=== PATIENT | male | born 1985 | race Two or more races ===

== ENCOUNTER 2019-09-11 20:01 | Emergency (ER) | payer MEDICAID ==
[~2019-09-11] VITALS: Ht 175.3 cm; Wt 90.7 kg
[2019-09-11] MEDS ORDERED: DOCUSATE SODIUM 100 MG/10 ML LIQUID UDC ONE (20:27)
[2019-09-11] MEDS ORDERED: DOCUSATE SODIUM 100 MG/10 ML LIQUID UDC NG ONE (20:30)
[2019-09-11] MEDS ORDERED: HYDROCODONE/APAP 10-325 MG TABLET PO ONE (22:00)
[2019-09-11] MEDS ORDERED: HYDROCODONE/APAP 10-325 MG TABLET ONE (22:01)
[2019-09-11 22:12] VITALS: BP 145/89
--- NOTE | 2019-09-11 22:12 | NUR ---
Patient discharged to home in stable conditon. Written and verbal after care instructions given. Patient verbalizes understanding of instructions. Patient ambulated with stable gait.
== END 2019-09-11 22:20 | disposition home or self-care (01) ==
LOC: ER 20:05
DX: H61.21 Impacted cerumen, right ear (principal); F17.200 Nicotine dependence, unspecified, uncomplicated; F15.10 Other stimulant abuse, uncomplicated
CPT/HCPCS: A4217; A4663

== ENCOUNTER 2019-12-28 00:19 | Emergency (ER) | payer MEDICAID ==
[~2019-12-28] VITALS: Ht 172.7 cm; Wt 74.8 kg
[2019-12-28] MEDS ORDERED: LIDOCAINE 1%-EPI 1:100,000 20 ML VIAL ONE (00:26)
[2019-12-28] MEDS ORDERED: SULFAMETH/TRIMETH 800/160 MG TABLET PO ONE (00:30)
[2019-12-28] MEDS ORDERED: SULFAMETH/TRIMETH 800/160 MG TABLET ONE (00:36)
--- NOTE | 2019-12-28 00:43 | NUR ---
Patient discharged to home in stable condition. Written and verbal after care instructions given. Patient verbalizes understanding of instructions. Stressed follow up or return to ER for worsening s/s.
[2019-12-28] MEDS ORDERED: LIDOCAINE 1%-EPI 1:100,000 20 ML VIAL TP ONE (00:45)
[2019-12-28 00:46] VITALS: BP 135/81
== END 2019-12-28 00:48 | disposition home or self-care (01) ==
LOC: ER 00:21
DX: L02.414 Cutaneous abscess of left upper limb (principal); S51.832S Puncture wound without foreign body of left forearm, sequela; X78.8XXS Intentional self-harm by other sharp object, sequela; F15.90 Other stimulant use, unspecified, uncomplicated
CPT/HCPCS: 10060; 99283; J3490; A4663

== ENCOUNTER 2025-02-13 03:01 | Emergency (ER) | payer MEDICAID ==
[~2025-02-13] VITALS: Ht 170.2 cm; Wt 113.4 kg
[2025-02-13] MEDS ORDERED: AMOXICILLIN-CLAVUL 875-125MG TABLET ONE (03:28)
[2025-02-13] MEDS: AMOXICILLIN-CLAVUL 875-125MG TABLET PO ONE (03:29)
[2025-02-13] MEDS ORDERED: PSEU120T99 PO (03:31)
[2025-02-13] MEDS ORDERED: AMOX-430 PO (03:31)
[2025-02-13] MEDS ORDERED: PSEUDOEPHEDRINE HCL 30 MG TABLET ONE (03:36)
[2025-02-13] MEDS: PSEUDOEPHEDRINE HCL 30 MG TABLET PO ONE (03:39)
[2025-02-13 03:43] VITALS: BP 144/95; O2SAT 98
== END 2025-02-13 03:41 | disposition home or self-care (01) ==
LOC: ER 03:08
DX: H66.91 Otitis media, unspecified, right ear (principal); F17.210 Nicotine dependence, cigarettes, uncomplicated; F19.10 Other psychoactive substance abuse, uncomplicated; Z88.7 Allergy status to serum and vaccine; Z60.2 Problems related to living alone
CPT/HCPCS: A4606; A4663